=== PATIENT | female | born 1950 | race Caucasian/White ===

== ENCOUNTER → 2024-08-05 | Outpatient (CLI) | payer OTHER ==
[2024-08-05 13:30] LABS: ALKALINE PHOSPHATASE 96 U/L (46-116); BUN 14 mg/dl (9-23); CHLORIDE 105 mmol/L (98-107); POTASSIUM 3.5 mmol/L (3.4-5.1); SGPT/ALT 18 U/L (5-49)
== END | disposition home or self-care (01) ==
LOC: LAB 12:43
PROVIDERS: ATTEND Orthopaedic Surgery
DX: M54.50 Low back pain, unspecified (principal)

== ENCOUNTER 2024-10-05 17:40 | Emergency (ER) | payer OTHER ==
[~2024-10-05] VITALS: Ht 157.4 cm; Wt 79.4 kg
[2024-10-05] MEDS ORDERED: Acetaminophen/Oxycodone 5 MG/325 MG TABLET PO ONE (18:15)
[2024-10-05] MEDS ORDERED: Ondansetron Hydrochloride 4 MG TAB PO ONE (18:15)
== END 2024-10-05 19:16 | disposition home or self-care (01) ==
LOC: ED 17:40
DX: S09.8XXA Other specified injuries of head, initial encounter (principal); E78.5 Hyperlipidemia, unspecified; R51.9 Headache, unspecified; Z90.710 Acquired absence of both cervix and uterus; W00.0XXA Fall on same level due to ice and snow, initial encounter; Y93.89 Activity, other specified; Y92.89 Other specified places as the place of occurrence of the external cause; Y99.8 Other external cause status